=== PATIENT | female | born 1965 | race Caucasian/White ===

== ENCOUNTER → 2017-01-02 | Outpatient (CLI) | payer BC ==
--- NOTE | 2017-01-02 16:42 | REPMRS ---
Patient History The patient states she had a clinical breast exam in 12/2016. Patient is postmenopausal. Family history of prostate cancer in father at age 84 and breast cancer in maternal aunt. Digital Woman Screen Mammo: January 02, 2017 - Exam #: [id number] Bilateral CC and MLO view(s) were taken. Technologist: Danielle Farris, Technologist Prior study comparison: February 10, 2015, digital woman screen mammo performed at [facility]. February 11, 2014, digital woman screen mammo performed at [facility]. FINDINGS: The breast tissue is heterogeneously dense. This may lower the sensitivity of mammography. There is a moderate amount of heterogeneously dense fibroglandular tissue which is fairly symmetric. There is no interval development of dominant mass, architectural distortion, or clustered microcalcification typical of malignancy. There has been no change in the appearance of the mammogram from the prior studies. ASSESSMENT: BI-RADS/ACR category 1 mammogram. Negative. Recommendation Routine screening mammogram of both breasts in 1 year (for women over age 40). This mammogram was interpreted with the aid of an FDA-approved computer-aided dectection system. Electronically Signed By: Elian Goldstein MD 01/02/17 5088
== END ==
LOC: M WHC 15:32
PROVIDERS: ATTEND Nurse Practitioner Family
DX: Z12.31 Encounter for screening mammogram for malignant neoplasm of breast (principal); Z78.0 Asymptomatic menopausal state

== ENCOUNTER → 2017-01-02 | Outpatient (REF) | payer BC | LOC: M SFHCWAGY 16:30 | PROVIDERS: ATTEND Nurse Practitioner Family | DX: Z12.4 Encounter for screening for malignant neoplasm of cervix (principal) ==

== ENCOUNTER → 2017-04-10 | Outpatient (CLI) | payer BC ==
--- NOTE | 2017-04-11 02:17 | REP ---
Clinical: Chest pain. Dyspnea. Rule out pneumonia . Comparison: 11/30/2010 . Technique: PA and lateral. Findings: The mediastinum and cardiac silhouette are normal. The lung rivera are clear and without acute consolidation, effusion, or pneumothorax. The skeletal structures are intact and normal. Impression: 1. No acute cardiopulmonary process. Signed by Virgil Person MD 04/11/2017 02:09 A
== END ==
LOC: M RAD 19:34
PROVIDERS: ATTEND Physician Assistant Medical
DX: R05 Cough (principal); R06.02 Shortness of breath

== ENCOUNTER → 2017-05-19 | Outpatient (REF) | payer BC | LOC: M LAB REF 17:55 | PROVIDERS: ATTEND Podiatrist | DX: L03.119 Cellulitis of unspecified part of limb (principal) ==

== ENCOUNTER → 2018-04-09 | Outpatient (REF) | payer BC ==
[2018-04-11 14:11] LABS: HPV HYBRID CAPTURE II Negative (Negative)
== END ==
LOC: M SFHCWAGY 10:02
DX: Z12.4 Encounter for screening for malignant neoplasm of cervix (principal)

== ENCOUNTER → 2018-04-09 | Outpatient (CLI) | payer BC | LOC: M WHC 09:30 | DX: Z12.31 Encounter for screening mammogram for malignant neoplasm of breast (principal); N60.31 Fibrosclerosis of right breast; N60.32 Fibrosclerosis of left breast | CPT/HCPCS: 77067 ==

== ENCOUNTER → 2018-04-17 | Outpatient (REF) | payer BC ==
[2018-04-17 12:29] LABS: HEMATOCRIT 48.7 % (36.0-47.0); HEMOGLOBIN 16.2 g/dl (12.0-15.5); MEAN CORPUSCULAR HEMOGLOBIN 33.2 pg (27.0-33.0); MEAN CORPUSCULAR HGB CONC 33.3 g/dl (32.0-36.5); MEAN CORPUSCULAR VOLUME 99.8 fl (80.0-96.0); PLATELET COUNT, AUTOMATED 235 10^3/uL (150-450); RED BLOOD COUNT 4.88 10^6/uL (4.00-5.40); RED CELL DISTRIBUTION WIDTH 13.2 % (11.5-14.5); WHITE BLOOD COUNT 7.5 10^3/uL (4.0-10.0)
[2018-04-17 12:49] LABS: ALBUMIN/GLOBULIN RATIO 1.33 (1.00-1.93); ALKALINE PHOSPHATASE 106 U/L (45-117); ALT/SGPT 38 U/L (12-78); ANION GAP 5 MEQ/L (8-16); AST/SGOT 20 U/L (7-37); BILIRUBIN,TOTAL 0.4 MG/DL (0.2-1.0); BLOOD UREA NITROGEN 12 MG/DL (7-18); CALCIUM LEVEL 9.5 MG/DL (8.5-10.1); CARBON DIOXIDE LEVEL 31 MEQ/L (21-32); CHLORIDE LEVEL 107 MEQ/L (98-107); CHOLESTEROL LEVEL 275 MG/DL (<200); CHOLESTEROL RISK RATIO 4.508 (<5); CREATININE FOR GFR 0.71 MG/DL (0.55-1.30); FREE T4 1.06 NG/DL (0.76-1.46); GLOMERULAR FILTRATION RATE > 60.0 (>51); GLUCOSE, FASTING 119 MG/DL (70-100); HDL CHOLESTEROL 61 MG/DL (>40); LDL CHOLESTEROL 168 MG/DL (<100); NON-HDL-C 214 MG/DL; POTASSIUM SERUM 4.1 MEQ/L (3.5-5.1); SODIUM LEVEL 143 MEQ/L (136-145); THYROID STIMULATING HORMONE 0.994 uIU/ML (0.358-3.740); TRIGLYCERIDES LEVEL 228 MG/DL (<150)
== END ==
LOC: M SFHCPLAZ 08:17
DX: F32.9 Major depressive disorder, single episode, unspecified (principal); Z13.220 Encounter for screening for lipoid disorders
CPT/HCPCS: 84443

== ENCOUNTER → 2018-05-16 | Outpatient (CLI) | payer BC | LOC: M WUC 10:56 | DX: M54.2 Cervicalgia (principal); M25.512 Pain in left shoulder | CPT/HCPCS: 72052 ==

== ENCOUNTER → 2018-06-05 | Outpatient (CLI) | payer BC ==
[2018-06-05 12:18] LABS: TOTAL PROTEIN 6.7 GM/DL (6.4-8.2)
[2018-06-05 12:28] LABS: VITAMIN B12 LEVEL 260 PG/ML (247-911)
[2018-06-05 12:29] LABS: FOLATE 6.4 NG/ML (>5.4)
[2018-06-07 00:06] LABS: FREE KAPPA LIGHT CHAINS SERUM 11.1 mg/L (3.3-19.4); FREE LAMBDA LIGHT CHAINS SERUM 13.3 mg/L (5.7-26.3); KAPPA/LAMBDA RATIO SERUM 0.83 (0.26-1.65)
[2018-06-09 13:21] LABS: ALBUMIN 4.21 GM/DL (3.29-5.55); ALBUMIN % 62.9 % (55.8-66.1); ALPHA-1-GLOBULINS 0.27 GM/DL (0.17-0.41); ALPHA-2-GLOBULINS 0.75 GM/DL (0.42-0.99); ALPHA-2-GLOBULINS % 11.2 % (7.1-11.8); BETA-1-GLOBULINS 0.45 GM/DL (0.28-0.60); BETA-1-GLOBULINS % 6.7 % (4.7-7.2); BETA-2-GLOBULINS 0.36 GM/DL (0.19-0.55); BETA-2-GLOBULINS % 5.4 % (3.2-6.5); GAMMA GLOBULINS 0.66 GM/DL (0.65-1.58)
[2018-06-09 13:22] LABS: GAMMA GLOBULIN % 9.8 % (11.1-18.8)
== END ==
LOC: M LAB 10:46
DX: R71.8 Other abnormality of red blood cells (principal)
CPT/HCPCS: 82746

== ENCOUNTER → 2018-06-18 | Outpatient (CLI) | payer BC ==
[~2018-06-18] MED LIST: ALEV220C2 PO; ALL10TAB27 PO; FLON1SPR NARES; VITA-193 PO
[2018-06-20 08:09] LABS: FREE KAPPA LIGHT CHAINS URINE 1.53 mg/L (1.35-24.19); FREE LAMBDA LIGHT CHAINS URINE 0.18 mg/L (0.24-6.66); KAPPA/LAMBDA RATIO URINE 8.5 (2.04-10.37)
== END ==
LOC: M LAB 10:41
PROVIDERS: ATTEND Physician Assistant
DX: D80.1 Nonfamilial hypogammaglobulinemia (principal)

== ENCOUNTER → 2018-07-24 | Outpatient (CLI) | payer BC ==
[~2018-07-24] MED LIST changes: -ALL10TAB27 PO; +ALL10TAB28 PO; +ASPI1TAB PO; +MULT1TAB42 PO
--- NOTE | 2018-07-24 12:30 | REP ---
ULTRASOUND LEFT UPPER QUADRANT: Real-time sonographic evaluation of the left upper quadrant performed. The spleen is normal in size measuring 8.8 x 3.6 x 8.4 cm. There is no intrinsic mass. No free fluid is seen in the left upper quadrant. Left kidney is normal in size and echotexture, measuring 4.6 x 5.6 x 5.6 cm. There is no left hydronephrosis, mass or nephrolithiasis. IMPRESSION: Negative left upper quadrant ultrasound. No evidence of splenomegaly. Electronically Signed by Favio Benitez MD 07/24/2018 01:08 P
== END ==
LOC: M RAD 11:16
PROVIDERS: ATTEND Internal Medicine Medical Oncology
DX: G62.9 Polyneuropathy, unspecified (principal); M54.2 Cervicalgia

== ENCOUNTER → 2019-04-12 | Outpatient (CLI) | payer BC ==
[~2019-04-12] MED LIST changes: -ALL10TAB28 PO; +ALL10TAB29 PO; -ASPI1TAB PO; +ASPI81TA26 PO; +CYAN500T9 PO; -VITA-193 PO
--- NOTE | 2019-04-12 10:46 | REPMRS ---
Patient History The patient states she had a clinical breast exam in 03/2019. Patient is postmenopausal. Family history of breast cancer in maternal aunt, prostate cancer at age 84 in father, breast cancer at age 73 in mother, colorectal cancer at age 50 or over in paternal cousin. No Hormone Replacement Therapy Digital Woman Screen Mammo: April 12, 2019 - Exam #: [id number] Bilateral CC and MLO view(s) were taken. Technologist: Danielle Farris, Technologist Prior study comparison: April 09, 2018, bilateral digital woman screen mammo performed at [facility]. January 02, 2017, digital woman screen mammo performed at [facility]. February 10, 2015, digital woman screen mammo performed at [facility]. FINDINGS: The breast tissue is heterogeneously dense. This may lower the sensitivity of mammography. There is a moderate amount of heterogeneously dense fibroglandular tissue which is fairly symmetric. There is no interval development of dominant mass, architectural distortion, or grouped microcalcification typical of malignancy. There has been no change in the appearance of the mammogram from the prior studies. 3-D tomosynthesis shows no additional findings. Assessment: BI-RADS/ACR category 1 mammogram. Negative Mammogram. Recommendation Breast MRI of both breasts in 6 months. Routine screening mammogram of both breasts in 1 year (for women over age 40). This patient's Lifetime Breast Cancer RIsk is estimated at 20.2 %. Annual screening Breast MRI scanniing is recommended for patient's whose lifetime risk assessment is over 20%. This mammogram was interpreted with the aid of an FDA-approved computer-aided dectection system. Electronically Signed By: Elian Goldstein MD 04/12/19 2001
== END ==
LOC: M WHC 08:40
PROVIDERS: ATTEND Nurse Practitioner Family
DX: Z12.31 Encounter for screening mammogram for malignant neoplasm of breast (principal)

== ENCOUNTER → 2019-05-08 | Outpatient (CLI) | payer BC ==
--- NOTE | 2019-05-08 11:12 | REP ---
PA and lateral chest: Comparison is 04/10/2017. The lung rivera are clear. The cardiac size is normal. The felisha, mediastinum, and skeletal structures are unremarkable. Impression: Negative PA and lateral chest. There is no interval change. Electronically Signed by Favio Odell MD 05/08/2019 11:03 A
== END ==
LOC: M WUC 09:46
PROVIDERS: ATTEND Family Medicine
DX: R05 Cough (principal)

== ENCOUNTER → 2019-11-16 | Outpatient (REF) | payer BC ==
[2019-11-16 18:21] LABS: HEMOGLOBIN A1c 6.1 %
== END ==
LOC: M SFHCPLAZ 14:47
PROVIDERS: ATTEND Family Medicine
DX: R73.09 Other abnormal glucose (principal)

== ENCOUNTER → 2020-04-13 | Outpatient (CLI) | payer BC ==
[~2020-04-13] MED LIST changes: -ALL10TAB29 PO; +CETI-24 PO; +CYAN500T10 PO; -CYAN500T9 PO
--- NOTE | 2020-04-13 11:37 | REPMRS ---
Patient History The patient states she had a clinical breast exam in 2019. Family history of breast cancer in maternal aunt, prostate cancer at age 84 in father, breast cancer at age 73 in mother, colorectal cancer at age 50 or over in paternal cousin. No Hormone Replacement Therapy Digital Woman Screen Mammo: April 13, 2020 - Exam #: [id number] Bilateral CC and MLO view(s) were taken. Technologist: Modesta To Technologist Prior study comparison: April 12, 2019, bilateral digital woman screen mammo performed at [facility]. April 09, 2018, bilateral digital woman screen mammo performed at [facility]. January 02, 2017, digital woman screen mammo performed at [facility]. FINDINGS: There are scattered fibroglandular densities. The Volpara volumetric breast density category is:B. There has been no change in the appearance of the mammogram from the prior studies. There is a mild amount of scattered fibroglandular density which is fairly symmetric. There is no interval development of dominant mass, architectural distortion, or grouped microcalcification suggestive of malignancy. 3-D tomosynthesis shows no additional findings. Assessment: BI-RADS/ACR category 1 mammogram. Negative Mammogram. Recommendation Routine screening mammogram of both breasts in 1 year (for women over age 40). This patient's Lifetime Breast Cancer Risk is estimated at 19.8 %. This mammogram was interpreted with the aid of an FDA-approved computer-aided dectection system. Electronically Signed By: Elian Goldstein MD 04/13/20 2520
== END ==
LOC: M WHC 09:49
PROVIDERS: ATTEND Nurse Practitioner Family
DX: Z12.31 Encounter for screening mammogram for malignant neoplasm of breast (principal)

== ENCOUNTER → 2021-03-16 | Outpatient (CLI) | payer BC ==
[~2021-03-16] MED LIST changes: -CYAN500T10 PO; +VITA500T37 PO
[2021-03-16 11:25] LABS: HEMATOCRIT 47.3 % (36.0-47.0); HEMOGLOBIN 15.7 g/dl (12.0-15.5); MEAN CORPUSCULAR HGB CONC 33.2 g/dl (32.0-36.5); MEAN CORPUSCULAR VOLUME 99.4 fl (80.0-96.0); PLATELET COUNT, AUTOMATED 224 10^3/uL (150-450); RED BLOOD COUNT 4.76 10^6/uL (4.00-5.40); WHITE BLOOD COUNT 6.6 10^3/uL (4.0-10.0)
[2021-03-16 12:21] LABS: ALBUMIN 3.7 GM/DL (3.2-5.2); ALT/SGPT 29 U/L (12-78); BILIRUBIN,TOTAL 0.7 MG/DL (0.2-1.0); BLOOD UREA NITROGEN 12 MG/DL (7-18); CALCIUM LEVEL 8.7 MG/DL (8.5-10.1); CARBON DIOXIDE LEVEL 26 MEQ/L (21-32); CHLORIDE LEVEL 108 MEQ/L (98-107); CHOLESTEROL LEVEL 252 MG/DL (<200); CREATININE FOR GFR 0.62 MG/DL (0.55-1.30); GLOMERULAR FILTRATION RATE > 60.0 (>51); GLUCOSE, FASTING 106 MG/DL (70-100); HDL CHOLESTEROL 50 MG/DL (>40); LDL CHOLESTEROL 138 MG/DL (<100); NON-HDL-C 202 MG/DL; POTASSIUM SERUM 3.9 MEQ/L (3.5-5.1); SODIUM LEVEL 142 MEQ/L (136-145); TOTAL PROTEIN 6.3 GM/DL (6.4-8.2); TRIGLYCERIDES LEVEL 322 MG/DL (<150)
[2021-03-16 13:24] LABS: HEMOGLOBIN A1c 5.7 %
== END ==
LOC: M PLALAB 08:47
PROVIDERS: ATTEND Family Medicine
DX: R73.01 Impaired fasting glucose (principal); Z13.220 Encounter for screening for lipoid disorders; D58.2 Other hemoglobinopathies

== ENCOUNTER → 2021-03-20 | Outpatient (CLI) | payer BC ==
[~2021-03-20] MED LIST changes: +ISOVUE-370 76% 100ML VIAL As Ordered ONE
--- NOTE | 2021-03-20 10:29 | REP ---
INDICATION: NECK MASS. COMPARISON: No comparison imaging. TECHNIQUE: It helical scanning is acquired following the intravenous injection of 75 mL of Isovue 370. 3 mm axial images re-formatted. Coronal and sagittal MPR images are included. A metallic BB is affixed to the skin of the right neck in the area of clinical concern. FINDINGS: There is no evidence of paranasal sinus disease. No intraorbital abnormality is seen. The visualized intracranial structures are unremarkable. Glottic and subglottic airway are unremarkable. The thyroid gland contains multiple small subcentimeter nodules on the right consistent with cysts or nodules. The lung apices are clear. The submandibular and the left parotid glands are normal in appearance. At the inferior tip of the right parotid gland, there is a 1.6 x 2.6 x 1.5 cm heterogeneously enhancing soft tissue nodule. This is suspicious for a parotid neoplasm. Benign versus malignant. It is in the superficial lobe. This is seen immediately beneath the opaque BB and is therefore felt to correspond with the palpable abnormality. There are normal-sized anterior cervical lymph nodes bilaterally. No evidence of adenopathy. There is degenerative disc disease in the cervical spine at C4-5 and C5-6. No vascular abnormality is appreciated. IMPRESSION: Heterogeneously enhancing 2.6 cm nodule along the inferior margin of the superficial lobe of the right parotid gland. Benign versus malignant parotid lesion. Consider palpation directed versus ultrasound-guided needle biopsy procedure. <Electronically signed by Elian Goldstein > 03/20/21 1022
== END ==
LOC: M RAD 09:18
PROVIDERS: ATTEND Family Medicine
DX: R22.1 Localized swelling, mass and lump, neck (principal)
CPT/HCPCS: 70491; Q9967

== ENCOUNTER → 2021-04-02 | Outpatient (CLI) | payer BC ==
[~2021-04-02] MED LIST changes: +ALBU83IN INH; -ISOVUE-370 76% 100ML VIAL As Ordered ONE; +LIDOCAINE 1% MDV 20ML VIAL As Ordered ONE; +SODIUM BICARBONATE 8.4% INJ 50MEQ 50 ML VIAL As Ordered ONE
[2021-04-02 15:00] VITALS: BP 151/78
--- NOTE | 2021-04-03 08:43 | REP ---
INDICATION: OTHER DISEASES OF SALIVARY GLANDS. COMPARISON: None. TECHNIQUE: The procedure was performed by Lazara Boo [facility] [place], under the direct supervision of Dr. Goldstein. The risks and benefits of the procedure were explained to the patient and an informed consent was obtained both verbally and written. Directly prior to the start of the procedure a formal time-out was completed in the procedure room. FINDINGS: Using ultrasound guidance the right parotid lymph node was localized. The skin was prepped and draped in a sterile fashion. Four mL of buffered lidocaine was used as a local anesthetic. Using ultrasound guidance a 17/18 gauge coaxial needle biopsy system was inserted and advanced into the right parotid lymph node. Eight core biopsy specimens were obtained. Four specimens were sent to our lab here, and remaining 4 were sent out in RPMI solution, for further testing. The patient tolerated the procedure well and there were no immediate complications. After the appropriate amount of monitored convalescence the patient was discharged from the department. IMPRESSION: 1. Ultrasound-guided right parotid lymph node biopsy. <Electronically signed by Lazara Boo > 04/03/21 0832 <Electronically signed by Elian Goldstein > 04/03/21 0841
== END ==
LOC: M IRPRO 13:00
PROVIDERS: ATTEND Family Medicine
DX: K11.8 Other diseases of salivary glands (principal)

== ENCOUNTER → 2021-04-23 | Outpatient (CLI) | payer BC ==
[~2021-04-23] MED LIST changes: -LIDOCAINE 1% MDV 20ML VIAL As Ordered ONE; -SODIUM BICARBONATE 8.4% INJ 50MEQ 50 ML VIAL As Ordered ONE
--- NOTE | 2021-04-23 09:16 | REP ---
INDICATION: NICOTINE DEPENDENCE. COMPARISON: None. TECHNIQUE: Axial noncontrast images from the thoracic inlet to the upper abdomen using low-dose lung screening technique (LDCT). As per the protocol only lung window images were sent to the read station for interpretation. FINDINGS: There are no abnormal nodules, masses, or opacities. Grossly, the mediastinum and pulmonary felisha are within normal limits. Grossly, the imaged upper abdomen and imaged osseous structures are within normal limits. IMPRESSION: Lung rads category 1 negative low-dose screening CT examination of the lungs. Follow-up as per the revised Fleischner society criteria. <Electronically signed by Lakhwinder Mauricio > 04/23/21 6102
== END ==
LOC: M RAD 07:26
PROVIDERS: ATTEND Family Medicine
DX: Z12.2 Encounter for screening for malignant neoplasm of respiratory organs (principal); F17.210 Nicotine dependence, cigarettes, uncomplicated

== ENCOUNTER → 2021-07-18 | Outpatient (CLI) | payer BC | LOC: M WHC 10:38 | PROVIDERS: ATTEND Nurse Practitioner Women's Health | DX: Z12.31 Encounter for screening mammogram for malignant neoplasm of breast (principal); Z80.3 Family history of malignant neoplasm of breast ==

== ENCOUNTER → 2022-02-18 | Outpatient (CLI) | payer BC ==
[~2022-02-18] MED LIST changes: +ALBU2.5V10 INH; -ALBU83IN INH
[2022-02-18 15:43] LABS: BASO # 0.1 10^3/uL (0.0-0.2); BASO % 0.8 % (0.0-1.0); EOS # 0.1 10^3/uL (0.0-0.5); EOS % 0.6 % (0.0-3.0); HEMATOCRIT 47.8 % (36.0-47.0); HEMOGLOBIN 16.3 g/dl (12.0-15.5); LYMPH # 3.8 10^3/uL (1.5-5.0); MEAN CORPUSCULAR HEMOGLOBIN 33.6 pg (27.0-33.0); MEAN CORPUSCULAR HGB CONC 34.1 g/dl (32.0-36.5); MEAN CORPUSCULAR VOLUME 98.6 fl (80.0-96.0); MONO # 0.6 10^3/uL (0.0-0.8); MONO % 7.5 % (2.0-8.0); NEUTROPHILS # 3.9 10^3/uL (1.5-8.5); NEUTROPHILS % 45.7 % (36.0-66.0); PLATELET COUNT, AUTOMATED 259 10^3/uL (150-450); RED BLOOD COUNT 4.85 10^6/uL (4.00-5.40); WHITE BLOOD COUNT 8.5 10^3/uL (4.0-10.0)
[2022-02-18 15:54] LABS: INR 0.93; PARTIAL THROMBOPLASTIN TIME 28.2 SECONDS (25.9-37.0); PROTHROMBIN TIME 12.9 SECONDS (12.7-14.5)
[2022-02-18 16:33] LABS: ALT/SGPT 36 U/L (12-78); BILIRUBIN,TOTAL 0.4 MG/DL (0.2-1.0); BLOOD UREA NITROGEN 9 MG/DL (7-18); CALCIUM LEVEL 9.3 MG/DL (8.5-10.1); CARBON DIOXIDE LEVEL 31 MEQ/L (21-32); CHLORIDE LEVEL 105 MEQ/L (98-107); CREATININE FOR GFR 0.65 MG/DL (0.55-1.30); FREE T4 0.99 NG/DL (0.76-1.46); GLOMERULAR FILTRATION RATE > 60.0 (>51); GLUCOSE, FASTING 94 MG/DL (70-100); NT-PRO BNP 35 PG/ML (<125); POTASSIUM SERUM 3.8 MEQ/L (3.5-5.1); SODIUM LEVEL 140 MEQ/L (136-145); TOTAL PROTEIN 7.2 GM/DL (6.4-8.2)
[2022-02-18 16:55] LABS: VITAMIN B12 LEVEL 196 PG/ML (247-911)
== END ==
LOC: M PLALAB 12:15
PROVIDERS: ATTEND Family Medicine
DX: R73.01 Impaired fasting glucose (principal); E53.8 Deficiency of other specified B group vitamins; E78.2 Mixed hyperlipidemia; F17.210 Nicotine dependence, cigarettes, uncomplicated

== ENCOUNTER → 2022-04-24 | Outpatient (CLI) | payer BC | LOC: M RAD 16:31 | PROVIDERS: ATTEND Physician Assistant | DX: Z12.2 Encounter for screening for malignant neoplasm of respiratory organs (principal) ==

== ENCOUNTER → 2022-08-15 | Outpatient (CLI) | payer OTHER | LOC: M WHC 07:29 | PROVIDERS: ATTEND Advanced Practice Midwife | DX: Z12.31 Encounter for screening mammogram for malignant neoplasm of breast (principal) ==

== ENCOUNTER → 2023-07-31 | Outpatient (CLI) | payer BC ==
[2023-07-31 10:32] LABS: HEMATOCRIT 47.6 % (36.0-47.0); HEMOGLOBIN 15.9 g/dl (12.0-15.5); MEAN CORPUSCULAR HEMOGLOBIN 32.9 pg (27.0-33.0); MEAN CORPUSCULAR HGB CONC 33.4 g/dl (32.0-36.5); MEAN CORPUSCULAR VOLUME 98.3 fl (80.0-96.0); PLATELET COUNT, AUTOMATED 239 10^3/uL (150-450); RED BLOOD COUNT 4.84 10^6/uL (4.00-5.40)
[2023-07-31 10:58] LABS: ALBUMIN 3.8 G/DL (3.2-5.2); ALKALINE PHOSPHATASE 91 U/L (46-116); ALT/SGPT 35 U/L (7.0-40); AST/SGOT 19 U/L (<34); BILIRUBIN,TOTAL 0.4 MG/DL (0.3-1.2); BLOOD UREA NITROGEN 12 MG/DL (9-23); CALCIUM LEVEL 9.4 MG/DL (8.5-10.1); CARBON DIOXIDE LEVEL 30 MMOL/L (20-31); CHLORIDE LEVEL 106 MMOL/L (98-107); CHOLESTEROL LEVEL 286 MG/DL (<200); CHOLESTEROL RISK RATIO 4.88 (<5); CREATININE FOR GFR 0.61 MG/DL (0.55-1.30); GLOMERULAR FILTRATION RATE > 60.0 (>51); GLUCOSE, FASTING 99 MG/DL (60-100); HDL CHOLESTEROL 58.5 MG/DL (>40); LDL CHOLESTEROL 169.1 MG/DL (<100); NON-HDL-C 227.5 MG/DL; POTASSIUM SERUM 4.2 MMOL/L (3.5-5.1); SODIUM LEVEL 141 MMOL/L (136-145); TOTAL PROTEIN 6.6 G/DL (5.7-8.2); TRIGLYCERIDES LEVEL 292 MG/DL (<150)
[2023-07-31 11:00] LABS: VITAMIN B12 LEVEL 281 PG/ML (211-911)
== END ==
LOC: M PLALAB 09:14
PROVIDERS: ATTEND Family Medicine
DX: R73.01 Impaired fasting glucose (principal); E53.8 Deficiency of other specified B group vitamins; E78.2 Mixed hyperlipidemia; D75.1 Secondary polycythemia; E66.9 Obesity, unspecified

== ENCOUNTER → 2023-08-25 | Outpatient (REF) | payer BC | LOC: M SFHCWAGY 13:48 | PROVIDERS: ATTEND Nurse Practitioner Family | DX: Z12.4 Encounter for screening for malignant neoplasm of cervix (principal); R87.610 Atypical squamous cells of undetermined significance on cytologic smear of cervix (ASC-US) | CPT/HCPCS: 87624; G0123 ==

== ENCOUNTER → 2023-08-25 | Outpatient (CLI) | payer BC, OTHER | LOC: M WHC 08:09 | PROVIDERS: ATTEND Nurse Practitioner Family | DX: Z12.31 Encounter for screening mammogram for malignant neoplasm of breast (principal) ==

== ENCOUNTER → 2024-02-12 | Outpatient (CLI) | payer BC | LOC: M RAD 10:33 | PROVIDERS: ATTEND Family Medicine | DX: Z12.2 Encounter for screening for malignant neoplasm of respiratory organs (principal); F17.210 Nicotine dependence, cigarettes, uncomplicated; Z53.9 Procedure and treatment not carried out, unspecified reason ==

== ENCOUNTER → 2024-02-25 | Outpatient (CLI) | payer BC | LOC: M RAD 16:44 | PROVIDERS: ATTEND Family Medicine | DX: Z12.2 Encounter for screening for malignant neoplasm of respiratory organs (principal); F17.210 Nicotine dependence, cigarettes, uncomplicated ==

== ENCOUNTER → 2024-08-03 | Outpatient (CLI) | payer BC ==
[2024-08-03 10:49] LABS: HEMATOCRIT 47.7 % (36.0-47.0); HEMOGLOBIN 15.8 g/dl (12.0-15.5); MEAN CORPUSCULAR HEMOGLOBIN 32.4 pg (27.0-33.0); MEAN CORPUSCULAR HGB CONC 33.1 g/dl (32.0-36.5); MEAN CORPUSCULAR VOLUME 97.7 fl (80.0-96.0); PLATELET COUNT, AUTOMATED 246 10^3/uL (150-450); RED BLOOD COUNT 4.88 10^6/uL (4.00-5.40)
[2024-08-03 11:22] LABS: ALBUMIN 3.9 G/DL (3.2-5.2); ALKALINE PHOSPHATASE 89 U/L (35-104); ALT/SGPT 21 U/L (7.0-40); AST/SGOT 17 U/L (<34); BILIRUBIN,TOTAL 0.7 MG/DL (0.3-1.2); BLOOD UREA NITROGEN 13 MG/DL (9-23); CALCIUM LEVEL 9.3 MG/DL (8.5-10.1); CARBON DIOXIDE LEVEL 29 MMOL/L (20-31); CHLORIDE LEVEL 106 MMOL/L (98-107); CHOLESTEROL LEVEL 287 MG/DL (<200); CHOLESTEROL RISK RATIO 3.81 (<5); CREATININE FOR GFR 0.67 MG/DL (0.55-1.30); GLOMERULAR FILTRATION RATE > 60.0 (>51); GLUCOSE, FASTING 107 MG/DL (60-100); HDL CHOLESTEROL 75.2 MG/DL (>40); LDL CHOLESTEROL 172.6 MG/DL (<100); NON-HDL-C 211.8 MG/DL; POTASSIUM SERUM 4.4 MMOL/L (3.5-5.1); SODIUM LEVEL 144 MMOL/L (136-145); TOTAL PROTEIN 6.9 G/DL (5.7-8.2); TRIGLYCERIDES LEVEL 196 MG/DL (<150)
[2024-08-03 11:23] LABS: VITAMIN B12 LEVEL 279 PG/ML (211-911)
== END ==
LOC: M PLALAB 08:56
PROVIDERS: ATTEND Family Medicine
DX: D75.1 Secondary polycythemia (principal); E78.2 Mixed hyperlipidemia; E53.8 Deficiency of other specified B group vitamins; E66.9 Obesity, unspecified

== ENCOUNTER → 2024-09-16 | Outpatient (CLI) | payer BC | LOC: M WHC 12:00 | PROVIDERS: ATTEND Nurse Practitioner Family | DX: Z12.31 Encounter for screening mammogram for malignant neoplasm of breast (principal); N63.11 Unspecified lump in the right breast, upper outer quadrant; N63.12 Unspecified lump in the right breast, upper inner quadrant; R92.333 Mammographic heterogeneous density, bilateral breasts ==

== ENCOUNTER → 2024-09-16 | Outpatient (REF) | payer BC | LOC: M SFHCWAGY 13:23 | PROVIDERS: ATTEND Nurse Practitioner Family | DX: Z12.4 Encounter for screening for malignant neoplasm of cervix (principal); R87.610 Atypical squamous cells of undetermined significance on cytologic smear of cervix (ASC-US) | CPT/HCPCS: 87624; G0123 ==

== ENCOUNTER → 2024-09-23 | Outpatient (CLI) | payer BC | LOC: M WHC 08:13 | PROVIDERS: ATTEND Nurse Practitioner Family | DX: Z12.31 Encounter for screening mammogram for malignant neoplasm of breast (principal) | CPT/HCPCS: 76641; 77066; G0279 ==

== ENCOUNTER 2025-01-05 20:07 | Emergency (ER) | payer BC ==
[~2025-01-05] VITALS: Ht 165.1 cm; Wt 85.6 kg
[~2025-01-05 20:07] MED LIST changes: +MONT-5 PO; +chantix
[2025-01-05 23:01] LABS: BASO # 0.1 10^3/uL (0.0-0.2); BASO % 1.0 % (0.0-1.0); EOS # 0.1 10^3/uL (0.0-0.5); EOS % 0.8 % (0.0-3.0); LYMPH # 3.8 10^3/uL (1.5-5.0); LYMPH % 46.0 % (24.0-44.0); MONO # 0.7 10^3/uL (0.0-0.8); MONO % 8.7 % (2.0-8.0); NEUTROPHILS # 3.6 10^3/uL (1.5-8.5); NEUTROPHILS % 43.1 % (36.0-66.0); PLATELET COUNT, AUTOMATED 251 10^3/uL (150-450)
[2025-01-05 23:17] LABS: CALCIUM LEVEL 9.2 MG/DL (8.5-10.1); CARBON DIOXIDE LEVEL 27 MMOL/L (20-31); CHLORIDE LEVEL 106 MMOL/L (98-107); CREATININE FOR GFR 0.71 MG/DL (0.55-1.30); GLOMERULAR FILTRATION RATE > 90.0 (>51); POTASSIUM SERUM 3.6 MMOL/L (3.5-5.1); SODIUM LEVEL 146 MMOL/L (136-145)
[2025-01-05 23:36] LABS: C REACTIVE PROTEIN QUANTITATIV < 0.50 MG/DL (<1.0)
[2025-01-06 00:15] VITALS: TEMP 98.2
[2025-01-06] MEDS ORDERED: DOXY-441 PO (00:28)
[2025-01-06] MEDS: DOXYCYCLINE HYCLATE 100 MG TABLET PO ONE (00:32)
[2025-01-06 00:41] VITALS: BP 118/69; O2SAT 98
[2025-01-21] MEDS ORDERED: MAPA500C PO (08:32)
== END 2025-01-06 00:42 | disposition home or self-care (01) ==
LOC: M ED 20:07
DX: T81.31XA Disruption of external operation (surgical) wound, not elsewhere classified, initial encounter (principal); Z90.13 Acquired absence of bilateral breasts and nipples; J45.909 Unspecified asthma, uncomplicated; F32.9 Major depressive disorder, single episode, unspecified; Z88.0 Allergy status to penicillin; Z88.2 Allergy status to sulfonamides; Z79.52 Long term (current) use of systemic steroids; Z79.2 Long term (current) use of antibiotics; Z79.899 Other long term (current) drug therapy

== ENCOUNTER → 2025-01-06 | Outpatient (CLI) | payer BC ==
[~2025-01-06] MED LIST changes: +DOXY-441 PO; +MAPA500C PO
== END ==
LOC: M WHC 14:06
PROVIDERS: ATTEND Internal Medicine Hematology & Oncology
DX: Z85.3 Personal history of malignant neoplasm of breast (principal)

== ENCOUNTER → 2025-02-04 | Outpatient (CLI) | payer BC ==
[~2025-02-04] MED LIST changes: +[UNRECOGNIZED DRUG - OTHER] XX; +[UNRECOGNIZED DRUG - SUPPLY]
== END ==
LOC: M IRPRO 12:25
PROVIDERS: ATTEND Specialist
DX: C50.919 Malignant neoplasm of unspecified site of unspecified female breast (principal)
CPT/HCPCS: 36569; C1751

== ENCOUNTER 2025-02-17 11:15 | Emergency (ER) | payer BC ==
[~2025-02-17] VITALS: Ht 165.1 cm; Wt 85.3 kg
[~2025-02-17 11:15] MED LIST changes: +ONDA-84 PO
[2025-02-17] MEDS ORDERED: VARE1TAB2 (11:30)
[2025-02-17] MEDS ORDERED: PRED20TA PO (12:51)
[2025-02-17] MEDS ORDERED: CETI10CH PO (12:51)
[2025-02-17 13:30] VITALS: BP 156/89; TEMP 98.7; O2SAT 95
[2025-02-17] MEDS: SODIUM CHLORIDE 0.9% INJ 10 ML SYR IV PRN (13:31)
[2025-02-17] MEDS: HEPARIN LOCK FLUSH 100 UNITS/ML 3 ML SYRINGE IV PRN (13:31)
[2025-02-23] MEDS ORDERED: ATIV1TAB7 PO (11:47)
[2025-02-23] MEDS ORDERED: LIDO30CR18 TOP (11:47)
[2025-03-03] MEDS ORDERED: LOPE2TAB12 PO (10:32)
== END 2025-02-17 13:45 | disposition home or self-care (01) ==
LOC: M ED 12:26
DX: R06.02 Shortness of breath (principal); T45.1X5A Adverse effect of antineoplastic and immunosuppressive drugs, initial encounter; C50.911 Malignant neoplasm of unspecified site of right female breast; J45.909 Unspecified asthma, uncomplicated; F17.200 Nicotine dependence, unspecified, uncomplicated; Z88.0 Allergy status to penicillin; Z88.2 Allergy status to sulfonamides; Z79.51 Long term (current) use of inhaled steroids; Z79.899 Other long term (current) drug therapy; Z79.52 Long term (current) use of systemic steroids; Z92.21 Personal history of antineoplastic chemotherapy

== ENCOUNTER → 2025-02-21 | Outpatient (CLI) | payer BC ==
[~2025-02-21] MED LIST changes: +CETI10CH PO; +LIDOCAINE 1% MDV 20 ML VIAL SC SCH; +PRED20TA PO; +VANCOMYCIN HCL 1,000 MG, VIAL MATE ADAPTER 1 EACH in NS 250 ML IV ONE; +VARE1TAB2
[2025-02-21] MEDS: ceFAZolin SOD 2 GM IV ONCE IV ONE (08:15)
[2025-02-21 08:42] VITALS: TEMP 98.2
[2025-02-21] MEDS: MIDAZOLAM INJ 2 MG/2 ML VIAL IV PRN (10:19)
[2025-02-21] MEDS: diphenhydrAMINE 50 MG/ML VIAL IV ONE (10:21)
[2025-02-21] MEDS: NS (Normal Saline) 0.9% 1,000 ML IV SCH (10:23)
[2025-02-21 11:20] VITALS: BP 133/73; O2SAT 97
== END ==
LOC: M IRPRO 08:21
PROVIDERS: ATTEND Internal Medicine Hematology & Oncology
DX: Z85.3 Personal history of malignant neoplasm of breast (principal)
CPT/HCPCS: 36561; 99152; 99153; J0690; J1200; J1642; J2250; J3010

== ENCOUNTER → 2025-03-07 | Outpatient (POV) | payer BC ==
[~2025-03-07] VITALS: Ht 165.1 cm; Wt 85.0 kg
[~2025-03-07] MED LIST changes: +ATIV1TAB7 PO; +LIDO30CR18 TOP; -LIDOCAINE 1% MDV 20 ML VIAL SC SCH; +LOPE2TAB12 PO; -VANCOMYCIN HCL 1,000 MG, VIAL MATE ADAPTER 1 EACH in NS 250 ML IV ONE
[2025-03-07 08:25] VITALS: BP 140/90; O2SAT 97
== END ==
LOC: M IRPOV 08:16
PROVIDERS: ATTEND Registered Nurse School
DX: Z45.2 Encounter for adjustment and management of vascular access device (principal); Z88.0 Allergy status to penicillin; Z88.1 Allergy status to other antibiotic agents; Z88.2 Allergy status to sulfonamides

== ENCOUNTER → 2025-04-04 | Outpatient (CLI) | payer BC ==
[~2025-04-04] MED LIST changes: +BENA25CA4 PO
== END ==
LOC: M CARPUL 15:07
DX: C50.919 Malignant neoplasm of unspecified site of unspecified female breast (principal); I34.89 Other nonrheumatic mitral valve disorders; I36.1 Nonrheumatic tricuspid (valve) insufficiency; I37.1 Nonrheumatic pulmonary valve insufficiency; I31.39 Other pericardial effusion (noninflammatory)

== ENCOUNTER → 2025-04-28 | Outpatient (CLI) | payer BC ==
[~2025-04-28] MED LIST changes: +ISOVUE-370 76% 100 ML VIAL ONE; +LETR2.5T2 PO
== END ==
LOC: M PLAIMG 14:47
PROVIDERS: ATTEND Internal Medicine Medical Oncology
DX: C50.911 Malignant neoplasm of unspecified site of right female breast (principal); R07.89 Other chest pain; E27.8 Other specified disorders of adrenal gland

== ENCOUNTER 2025-05-18 14:50 | Outpatient (RCR) | payer BC ==
[~2025-05-18 14:50] MED LIST changes: -ISOVUE-370 76% 100 ML VIAL ONE
[2025-05-24] MEDS ORDERED: GABA-1171 PO (14:16)
[2025-05-24] MEDS ORDERED: POTA8CAP10 PO (14:16)
== END 2025-05-29 ==
LOC: M PT 14:50
PROVIDERS: ATTEND Internal Medicine Medical Oncology
DX: I89.0 Lymphedema, not elsewhere classified (principal); Z85.3 Personal history of malignant neoplasm of breast

== ENCOUNTER 2025-06-20 15:45 | Outpatient (RCR) | payer BC ==
[~2025-06-20 15:45] MED LIST changes: +GABA-1171 PO; +POTA8CAP10 PO
== END 2025-06-29 ==
LOC: M PT 15:45
PROVIDERS: ATTEND Internal Medicine Medical Oncology
DX: I89.0 Lymphedema, not elsewhere classified (principal)